=== PATIENT | male | born 1990 | race Two or more races ===

== ENCOUNTER 2019-01-02 17:20 | Emergency (ER) | payer OTHER ==
[~2019-01-02] VITALS: Ht 170.2 cm; Wt 68.0 kg
[2019-01-02 17:41] VITALS: BP 121/71
--- NOTE | 2019-01-02 17:51 | NUR ---
ED Nurse Note: Pt came in due to left palm laceration about 2-3 inches in length. 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 Bleeding controlled by a bandage. No tetanus shot. AAO x4 and ambulatory.
[2019-01-02] MEDS ORDERED: Lidocaine 1% MPF 10mg/ml 5ml IM ONE (18:15)
[2019-01-02] MEDS ORDERED: Tetanus/Diptheria/Pertussis IM ONE (18:15)
--- NOTE | 2019-01-02 18:20 | Emergency Room Report ---
History of Present Illness General Chief Complaint: Laceration Source: Patient Present Illness HPI 28-year-old male presents to the emergency department complaining of laceration sustained to the left wrist by accident. He states this was not self-inflicted he reports bleeding is controlled at this time he states that 1 of his coworkers applied a blood stopping agent. Patient does not know when his last tetanus vaccination was he denies taking blood thinning medications he denies paresthesias or inability to move the joints distal to his laceration. No aggravating or relieving factors at this time he reports his pain is 4 out of 10 in severity. Allergies: Coded Allergies: No Known Allergies (Unverified , 01/02/19) Patient History Past Medical History: see triage record Past Surgical History: none Pertinent Family History: none Reviewed Nursing Documentation: PMH: Agreed; PSxH: Agreed Nursing Documentation-PMH Past Medical History: No Stated History Review of Systems All Other Systems: negative except mentioned in HPI Physical Exam Vital Signs Date Time Temp Pulse Resp B/P (MAP) Pulse Ox O2 Delivery O2 Flow Rate FiO2 01/02/19 17:41 98.2 68 16 121/71 99 Room Air Sp02 EP Interpretation: reviewed, normal General Appearance: no apparent distress, alert, GCS 15, non-toxic Head: normocephalic, atraumatic Eyes: bilateral eye normal inspection, bilateral eye PERRL ENT: hearing grossly normal, normal voice Neck: full range of motion Respiratory: lungs clear, normal breath sounds, speaking full sentences Cardiovascular #1: regular rate, rhythm Musculoskeletal: back normal, gait/station normal, normal range of motion, non- tender Neurologic: alert, oriented x3, responsive, motor strength/tone normal, sensory intact, speech normal, grossly normal Psychiatric: judgement/insight normal Skin: laceration - 3cm left wrist laceration, no obvious fb's. bleeding is controlled. Lymphatic: no adenopathy Procedures Laceration/Wound Repair Laceration/Wound Repair : Consent: Verbal Wound Location: upper extremity - left wrist Wound's Depth, Shape: linear Wound Length (cm): 3 Wound Explored: clean Irrigated w/ Saline (ccs): 500 Betadine Prep?: Yes Anesthesia: 1% Lidocaine Volume Anesthetic (ccs): 2 Wound Repaired With: sutures Suture Size/Type: 4:0 Number of Sutures: 3 Layer Closure?: No Sterile Dressing Applied?: Yes Splint Applied?: Yes Type of Splint Applied: Thumb spika Patient Tolerated: Well Complications: None Medical Decision Making PA Attestation Dr. Spencer is my supervising Physician whom patient management has been discussed with. Diagnostic Impression: Primary Impression: Laceration ER Course 28-year-old male presents to the emergency department complaining of laceration sustained to the left wrist by accident. He states this was not self-inflicted he reports bleeding is controlled at this time he states that 1 of his coworkers applied a blood stopping agent. Patient does not know when his last tetanus vaccination was he denies taking blood thinning medications he denies paresthesias or inability to move the joints distal to his laceration. No aggravating or relieving factors at this time he reports his pain is 4 out of 10 in severity. Ddx considered but are not limited to laceration, tendon injury, cellulitis, amputation Vital signs: are WNL, pt. is afebrile H&PE are most consistent with: Left wrist laceration approx 3 cm in length ORDERS: none required at this time, the diagnosis is clinical ED INTERVENTIONS: -Tetanus vaccine was administered as pt. vaccination status was unknown. - The wound was copiously irrigated with normal saline, and explored for foreign body for which no FB was found. - The wound was approximated and closed using 3 interrupted 4.0 Ethilon sutures. -Bacitracin and sterile dressing is applied. Left Thumb Spika Splint applied by electrocardiogram technician. Pt. remains neurovascularly intact. Discussed with patient: That we make every effort to approximate the laceration as best as we can so that scarring will be as cosmetically pleasing as possible with our limited cosmetic skill set in the Emergency dept. Regardless of our best efforts there will be scarring after laceration repair. The extent of scarring is unknown at this time. DISCHARGE: At this time pt. is stable for d/c to home. Will provide printed patient care instructions, and any necessary prescriptions. Care plan and follow up instructions have been discussed with the patient prior to discharge. Last Vital Signs Date Time Temp Pulse Resp B/P (MAP) Pulse Ox O2 Delivery O2 Flow Rate FiO2 01/02/19 17:41 98.2 68 16 121/71 (88) 99 Room Air Disposition: HOME, SELF-CARE Condition: Stable Scripts Cephalexin* (KEFLEX*) 500 Mg Capsule 500 MG ORAL EVERY 12 HOURS for 7 Days, #14 CAP 0 Refills Prov: Lavenre Chou 01/02/19 Bacitracin/Polymyxin B Sulfate (BACITRACIN-POLYMYXIN OINTMENT) 28.35 Gm Oint...g. 1 APPLIC TP BID, #28.3 GM Prov: Laverne Chou 01/02/19 Patient Instructions: Laceration Care, Adult Additional Instructions: Take medications as directed. Follow up with a Primary Care Provider in 3-5 days, even if your symptoms have resolved. --Please review list of primary care clinics, if you do not already have a primary care provider Return sooner to ED if new symptoms occur, or current symptoms become worse. - Please note that this Emergency Department Report was dictated using [employer] control operator technology software, occasionally this can lead to erroneous entry secondary to interpretation by the dictation equipment. Laverne Chou Jan 02, 2019 18:20
[2019-01-02] MEDS ORDERED: CEPHALEXIN500 MG ORAL (18:51)
[2019-01-02] MEDS ORDERED: BACITRACIN-P28.35 GM TP (18:51)
[2019-01-02 19:00] VITALS: BP 125/76
--- NOTE | 2019-01-02 19:00 | NUR ---
ER DISCHARGE NOTE: Patient is cleared to be discharged per PA, pt is aox4, on room air, with stable vital signs. pt was given dc and prescription instructions, pt was able to verbalize understanding, pt id band removed. pt is able to ambulate with steady gait. pt took all belongings and left with his family member.
== END 2019-01-02 19:00 | disposition home or self-care (01) ==
LOC: EMR 18:09
DX: S61.512A Laceration without foreign body of left wrist, initial encounter (principal); Z23 Encounter for immunization; W45.8XXA Other foreign body or object entering through skin, initial encounter; Y92.511 Restaurant or cafe as the place of occurrence of the external cause; Y99.0 Civilian activity done for income or pay
CPT/HCPCS: 90471; 90715; 99283